=== PATIENT | male | born 1960 | race Caucasian/White ===

== ENCOUNTER 2020-12-28 14:01 | Observation (INO) ==
[2020-12-28 14:40] LABS: Basophils % 0.3 %; Eosinophils # 0.4 K/mcL (0.0-0.6); Eosinophils % 4.4 %; Hematocrit 39.6 % (37.5-50.1); Hemoglobin 12.7 g/dL (12.9-16.9); Immature Granulocytes % 0.3 % (0-4); Lymphocytes # 2.2 K/mcL (0.6-4.6); Lymphocytes % 24.6 %; Mean Corpuscular HGB Conc 32.1 g/dL (31.6-35.5); Mean Corpuscular Volume 93.4 fL (83.0-100.0); Mean Platelet Volume 9.8 fL (9.4-12.4); Monocytes # 0.9 K/mcL (0.0-1.3); Monocytes % 10.3 %; Neutrophils # 5.4 K/mcL (1.6-8.9); Platelet Count 277 K/mcL (140-400); Red Blood Count 4.24 M/mcL (4.19-5.50); Red Cell Distribution Width 13.5 % (11.5-14.5); Segmented Neutrophils % 60.1 %; White Blood Count 8.9 K/mcL (4.3-11.1)
[2020-12-28 14:53] LABS: INR 1.1; Prothrombin Time 12.2 Seconds (9.4-12.1)
[2020-12-28 14:54] LABS: BUN/Creatinine Ratio 19 (6-26); Blood Urea Nitrogen 19 mg/dL (6-20); Calcium 8.6 mg/dL (8.6-10.3); Carbon Dioxide 30 mEq/L (23-29); Chloride 104 mEq/L (98-107); Glucose 122 mg/dL (70-105); Osmolality,Calculated 294 (280-300); Potassium 3.9 mEq/L (3.5-5.1); Sodium 140 mEq/L (136-145); eGFR For African Americans > 60 (> 60); eGFR For Non-African Americans > 60 (> 60)
[2020-12-28 14:59] LABS: Troponin I < 0.03 ng/mL (< 0.04)
[2020-12-28 15:35] LABS: Bilirubin,Urine Negative (Negative); Blood,Urine Trace-intact (Negative); Clarity,Urine Clear (Clear); Color,Urine Yellow (Yellow); Glucose,Urine (UA) Normal (Normal); Ketones,Urine Negative (Negative); Leukocyte Esterase,Urine Negative (Negative); Nitrite,Urine Negative (Negative); PH,Urine 5.5 pH Units (5.0-8.0); Protein,Urine Trace mg/dL (Neg-Trace); Specific Gravity,Urine >= 1.030 (1.010-1.025); Urobilinogen,Urine Normal (Normal)
[2020-12-28] MEDS ORDERED: Naloxone 0.4 MG/ML INJ IVP PRN ×2 (15:40→16:06)
[2020-12-28] MEDS ORDERED: MOM Conc 10 ML UD.LIQ PO PRN (16:06)
[2020-12-28] MEDS ORDERED: Acetaminophen 325 MG TABLET PO PRN (16:06)
[2020-12-28] MEDS ORDERED: Mag Hydrox/Al Hydrox/Simeth 30 ML UDC PO PRN (16:06)
[2020-12-28] MEDS ORDERED: Furosemide 20 MG/2 ML VIAL IVP ONE (16:14)
[2020-12-28] MEDS ORDERED: Perflutren Lipid Microsphere 1.3 ML in 0.9 % Sodium Chloride 8.7 ML IVP PRN (16:17)
[2020-12-28] MEDS ORDERED: Nitroglycerin 0.4 MG TAB.SUBL SL PRN (16:20)
[2020-12-28] MEDS ORDERED: Aspirin 325 MG TABLET PO ONE (16:20)
[2020-12-28 16:42] LABS: Albumin 3.6 g/dL (3.5-5.7); Albumin/Globulin Ratio 1.3 (1.1-2.2); Bilirubin,Direct 0.1 mg/dL (0.0-0.2); Bilirubin,Indirect 0.2 mg/dL (0.0-1.0); Bilirubin,Total 0.3 mg/dL (0.3-1.0); Globulin 2.7 g/dL (2.4-3.5); Total Protein 6.3 g/dL (6.4-8.9)
[2020-12-28] MEDS: Nicotine 14 MG PATCH.TD24 TD SCH (16:49)
[2020-12-28] MEDS ORDERED: lisinopriL 10 MG TABLET PO SCH (17:15)
[2020-12-28] MEDS ORDERED: cloNIDine HCL 0.1 MG TABLET PO PRN (17:15)
[2020-12-28] MEDS ORDERED: Isovue-370 500 ML BOTTLE IVP ONE (17:23)
[2020-12-28] MEDS: *HR* Enoxaparin 100 MG/ML SYRINGE SQ SCH (18:34)
[2020-12-28 19:02] LABS: Amphetamine Screen,Urine Positive ng/mL (Cutoff=1000); Barbiturate Screen,Urine Negative ng/mL (Cutoff=200); Benzodiazepines Screen,Urine Negative ng/mL (Cutoff=200); Cannabinoid Screen,Urine Positive ng/mL (Cutoff = 50); Cocaine Screen,Urine Negative ng/mL (Cutoff= 300); Opiate Screen,Urine Negative ng/mL (Cutoff=300); Phencyclidine Screen,Urine Negative ng/mL (Cutoff=25)
[2020-12-28 19:17] LABS: Mucus,Urine Few per lpf (None-Few); RBC,Urine 0-3 per hpf (0-3); Squamous Epithelial Cell,Urine Few per hpf (None-Few); WBC,Urine 0-3 per hpf (0-3)
[2020-12-28] MEDS: *HR* OxyCODONE/APAP 5/325 TABLET PO PRN (20:16)
[2020-12-28] MEDS: hydrOXYzine pamoate 25 MG CAPSULE PO PRN (23:02)
[2020-12-29 02:45] LABS: Basophils % 0.3 %; Eosinophils # 0.2 K/mcL (0.0-0.6); Eosinophils % 2.2 %; Hematocrit 42.3 % (37.5-50.1); Hemoglobin 13.8 g/dL (12.9-16.9); Immature Granulocytes % 0.4 % (0-4); Lymphocytes # 2.6 K/mcL (0.6-4.6); Lymphocytes % 24.3 %; Mean Corpuscular HGB Conc 32.6 g/dL (31.6-35.5); Mean Corpuscular Hemoglobin 30.2 pg (28.0-33.3); Mean Corpuscular Volume 92.6 fL (83.0-100.0); Mean Platelet Volume 9.7 fL (9.4-12.4); Monocytes # 0.8 K/mcL (0.0-1.3); Monocytes % 7.7 %; Platelet Count 271 K/mcL (140-400); Red Blood Count 4.57 M/mcL (4.19-5.50); Red Cell Distribution Width 13.5 % (11.5-14.5); Segmented Neutrophils % 65.1 %; White Blood Count 10.8 K/mcL (4.3-11.1)
[2020-12-29 03:04] LABS: BUN/Creatinine Ratio 22 (6-26); Blood Urea Nitrogen 21 mg/dL (6-20); Calcium 8.8 mg/dL (8.6-10.3); Carbon Dioxide 29 mEq/L (23-29); Chloride 103 mEq/L (98-107); Chol/HDL Ratio 2.6 (0-4.9); Cholesterol 140 mg/dL (< 200); Glucose 106 mg/dL (70-105); HDL Cholesterol 53 mg/dL (40-59); LDL Cholesterol,Calculated 71 mg/dL (< 100); Osmolality,Calculated 291 (280-300); Potassium 4.2 mEq/L (3.5-5.1); Sodium 139 mEq/L (136-145); Triglycerides 82 mg/dL (< 150); eGFR For African Americans > 60 (> 60); eGFR For Non-African Americans > 60 (> 60)
[2020-12-29] MEDS: *HR* OxyCODONE/APAP 5/325 TABLET PO PRN ×3 (04:29→20:36)
[2020-12-29] MEDS: *HR* Enoxaparin 100 MG/ML SYRINGE SQ SCH ×2 (05:11→17:50)
[2020-12-29] MEDS ORDERED: methylPREDNISolone 125 MG/2 ML VIAL IVP ONE (07:24)
[2020-12-29] MEDS ORDERED: Albuterol 2.5 MG/3 ML NEBULIZER ONE (07:28)
[2020-12-29] MEDS: Ipratropium/Albuterol Neb 3 ML IH SCH ×4 (08:09→20:24)
[2020-12-29] MEDS: Aspirin Enteric Coated 81 MG Tablet PO SCH (08:15)
[2020-12-29] MEDS: lisinopriL 20 MG TABLET PO SCH (08:16)
[2020-12-29] MEDS: Nicotine 14 MG PATCH.TD24 TD SCH (08:16)
[2020-12-29] MEDS ORDERED: Furosemide 20 MG/2 ML VIAL IVP SCH (09:00)
[2020-12-29] MEDS: predniSONE 20 MG TABLET PO SCH (09:05)
[2020-12-29 14:04] LABS: Estimated Average Glucose 126 mg/dl
[2020-12-29] MEDS ORDERED: MethylPREDNISolone 40 MG/ML VIAL IVP SCH (16:00)
[2020-12-29] MEDS: hydrOXYzine pamoate 25 MG CAPSULE PO PRN (20:37)
[2020-12-30] MEDS: Ipratropium/Albuterol Neb 3 ML IH SCH ×6 (00:14→17:44)
[2020-12-30] MEDS: *HR* OxyCODONE/APAP 5/325 TABLET PO PRN (02:49)
[2020-12-30] MEDS: Ondansetron 4 MG/2 ML VIAL IVP PRN ×2 (04:06→14:45)
[2020-12-30] MEDS: hydrOXYzine pamoate 25 MG CAPSULE PO PRN (04:07)
[2020-12-30] MEDS: *HR* Enoxaparin 100 MG/ML SYRINGE SQ SCH (06:38)
[2020-12-30 07:49] LABS: Basophils % 0.1 %; Eosinophils % 0.1 %; Hematocrit 39.4 % (37.5-50.1); Hemoglobin 13.2 g/dL (12.9-16.9); Immature Granulocytes % 0.5 % (0-4); Lymphocytes # 2.9 K/mcL (0.6-4.6); Mean Corpuscular HGB Conc 33.5 g/dL (31.6-35.5); Mean Corpuscular Hemoglobin 30.4 pg (28.0-33.3); Mean Corpuscular Volume 90.8 fL (83.0-100.0); Mean Platelet Volume 10.8 fL (9.4-12.4); Monocytes # 1.7 K/mcL (0.0-1.3); Platelet Count 278 K/mcL (140-400); Red Blood Count 4.34 M/mcL (4.19-5.50); Red Cell Distribution Width 13.6 % (11.5-14.5); Segmented Neutrophils % 77.3 %; White Blood Count 20.7 K/mcL (4.3-11.1)
[2020-12-30 08:04] LABS: Alanine Aminotransferase 145 Units/L (7-52); Albumin 3.5 g/dL (3.5-5.7); Albumin/Globulin Ratio 1.3 (1.1-2.2); Alkaline Phosphatase 99 Units/L (34-104); Aspartate Amino Transferase 65 Units/L (13-39); BUN/Creatinine Ratio 26 (6-26); Bilirubin,Total 0.5 mg/dL (0.3-1.0); Blood Urea Nitrogen 28 mg/dL (6-20); Calcium 8.5 mg/dL (8.6-10.3); Carbon Dioxide 26 mEq/L (23-29); Chloride 103 mEq/L (98-107); Chol/HDL Ratio 2.7 (0-4.9); Cholesterol 116 mg/dL (< 200); Globulin 2.6 g/dL (2.4-3.5); Glucose 116 mg/dL (70-105); HDL Cholesterol 43 mg/dL (40-59); LDL Cholesterol,Calculated 54 mg/dL (< 100); Osmolality,Calculated 292 (280-300); Sodium 138 mEq/L (136-145); Total Protein 6.1 g/dL (6.4-8.9); Triglycerides 96 mg/dL (< 150); eGFR For African Americans > 60 (> 60); eGFR For Non-African Americans > 60 (> 60)
[2020-12-30] MEDS: predniSONE 20 MG TABLET PO SCH (08:27)
[2020-12-30] MEDS: lisinopriL 20 MG TABLET PO SCH (08:28)
[2020-12-30] MEDS: Nicotine 14 MG PATCH.TD24 TD SCH (08:29)
[2020-12-30] MEDS: Aspirin Enteric Coated 81 MG Tablet PO SCH (08:30)
[2020-12-30] MEDS ORDERED: Venlafaxine XR (24 HR) 37.5 MG CAP.ER.24H PO SCH (09:00)
[2020-12-30] MEDS ORDERED: *HR* LORazepam 0.5 MG TABLET PO ONE (11:27)
[2020-12-30] MEDS ORDERED: *HR* LORazepam 2 MG/ML VIAL ONE (14:31)
[2020-12-30] MEDS ORDERED: *HR* LORazepam 2 MG/ML VIAL IVP ONE (14:32)
[2020-12-30] MEDS ORDERED: Morphine Sulfate 2 MG/ML SYRINGE IVP ONE (14:36)
[2020-12-30 15:00] LABS: Basophils % 0.1 %; Eosinophils % 0.1 %; Hematocrit 44.8 % (37.5-50.1); Hemoglobin 14.5 g/dL (12.9-16.9); Immature Granulocytes % 0.5 % (0-4); Lymphocytes # 1.6 K/mcL (0.6-4.6); Lymphocytes % 9.2 %; Mean Corpuscular HGB Conc 32.4 g/dL (31.6-35.5); Mean Corpuscular Hemoglobin 30.3 pg (28.0-33.3); Mean Corpuscular Volume 93.5 fL (83.0-100.0); Mean Platelet Volume 10.6 fL (9.4-12.4); Monocytes # 0.7 K/mcL (0.0-1.3); Monocytes % 3.8 %; Neutrophils # 15.2 K/mcL (1.6-8.9); Platelet Count 312 K/mcL (140-400); Red Blood Count 4.79 M/mcL (4.19-5.50); Red Cell Distribution Width 13.8 % (11.5-14.5); Segmented Neutrophils % 86.3 %; White Blood Count 17.6 K/mcL (4.3-11.1)
[2020-12-30 15:07] LABS: ABG Base Excess -2 mEq/L (-2 to 3); ABG HCO3 25 mEq/L (21-27); ABG Oxygen Saturation 90 % (95-98); ABG PCO2 50 mmHg (35-45); ABG PO2 65 mmHg (85-104); ABG TCO2 26 mEq/L (20-26)
[2020-12-30] MEDS ORDERED: Metoclopramide 10 MG/2 ML VIAL IVP ONE (15:17)
[2020-12-30 15:21] LABS: Troponin I 0.03 ng/mL (< 0.04)
[2020-12-30 15:39] LABS: BUN/Creatinine Ratio 23 (6-26); Blood Urea Nitrogen 33 mg/dL (6-20); Calcium 8.8 mg/dL (8.6-10.3); Carbon Dioxide 25 mEq/L (23-29); Chloride 101 mEq/L (98-107); Glucose 208 mg/dL (70-105); Magnesium 1.9 mg/dL (1.6-2.6); Osmolality,Calculated 297 (280-300); Potassium 4.6 mEq/L (3.5-5.1); Sodium 137 mEq/L (136-145); eGFR For African Americans > 60 (> 60); eGFR For Non-African Americans 50 (> 60)
[2020-12-30] MEDS ORDERED: Furosemide 40 MG/4 ML VIAL ONE (16:12)
[2020-12-30 16:17] LABS: ABG Base Excess -1 mEq/L (-2 to 3); ABG HCO3 26 mEq/L (21-27); ABG Oxygen Saturation 91 % (95-98); ABG PCO2 50 mmHg (35-45); ABG PH 7.33 pH Units (7.32-7.45); ABG PO2 65 mmHg (85-104); ABG TCO2 28 mEq/L (20-26)
[2020-12-30] MEDS ORDERED: Furosemide 40 MG/4 ML VIAL IVP ONE (16:30)
[2020-12-30 18:37] VITALS: BP 139/95
== END 2020-12-30 18:50 | disposition other institution (70) ==
LOC: EMEROOPIK 14:01 → INTOOBSV 15:58 → INPPIK 15:58
PROVIDERS: ADMIT Family Medicine; ATTEND Family Medicine